=== PATIENT | female | born 1970 | race Caucasian/White ===

== ENCOUNTER 2016-07-06 20:02 | Emergency (ER) | payer MEDICAID ==
[~2016-07-06] VITALS: Ht 152.4 cm; Wt 76.1 kg
[2016-07-06 23:05] VITALS: BP 148/85
== END 2016-07-06 23:06 | disposition home or self-care (01) ==
LOC: ER 20:04
DX: L01.00 Impetigo, unspecified (principal); B34.9 Viral infection, unspecified
CPT/HCPCS: 99283

== ENCOUNTER 2018-12-23 19:54 | Emergency (ER) | payer SELFPAY ==
[~2018-12-23] VITALS: Ht 160 cm; Wt 71.0 kg
[2018-12-23 20:52] VITALS: BP 145/55
== END 2018-12-23 23:12 | disposition home or self-care (01) ==
LOC: ER 19:54
DX: H11.32 Conjunctival hemorrhage, left eye (principal); R03.0 Elevated blood-pressure reading, without diagnosis of hypertension
CPT/HCPCS: 99281

== ENCOUNTER 2021-10-27 18:40 | Emergency (ER) | payer SELFPAY ==
[~2021-10-27] VITALS: Ht 157.5 cm; Wt 89.0 kg
[2021-10-27 19:11] VITALS: BP 161/87
[2021-10-28] MEDS ORDERED: KETOROLAC 15MG/ML VIAL IM ONE (01:15)
[2021-10-28] MEDS ORDERED: NAPR-681 MT (03:08)
== END 2021-10-28 03:35 | disposition home or self-care (01) ==
LOC: ER 18:40
DX: M71.22 Synovial cyst of popliteal space [Baker], left knee (principal); E11.9 Type 2 diabetes mellitus without complications; I10 Essential (primary) hypertension
CPT/HCPCS: 73562; 96372; 99283; J1885